=== PATIENT | female | born 1960 | race Hispanic/Latino ===

== ENCOUNTER 2021-05-08 22:14 | Emergency (ER) | payer OTHER ==
[2021-05-08 22:28] VITALS: BP 154/77
[2021-05-08] MEDS ORDERED: LIDOCAINE HCL 1% 20 ML VIAL INJ SCH (22:30)
[2021-05-08] MEDS ORDERED: LIDOCAINE 1%-EPI 1:100,000 20 ML VIAL IJ ONE (23:12)
[2021-05-09] MEDS ORDERED: CEPHALEXIN 500 MG CAPSULE PO SCH
[2021-05-09] MEDS ORDERED: TETANUS/DIPHTHERIA TOXOID [ADULT] 0.5 ML VIAL IM ONE
[2021-05-09] MEDS ORDERED: CEPH250C2 PO (00:04)
[2021-05-09 00:27] VITALS: BP 132/68
== END 2021-05-09 00:27 | disposition home or self-care (01) ==
LOC: EDH 22:14
DX: S01.81XA Laceration without foreign body of other part of head, initial encounter (principal); W01.198A Fall on same level from slipping, tripping and stumbling with subsequent striking against other object, initial encounter; Y93.01 Activity, walking, marching and hiking; Y92.89 Other specified places as the place of occurrence of the external cause; Y99.8 Other external cause status
CPT/HCPCS: 12013; 70450; 99284; J3490; 12002